=== PATIENT | male | born 1965 | race Caucasian/White ===

== ENCOUNTER 2021-07-16 18:36 | Emergency (ER) | payer BC ==
[~2021-07-16] VITALS: Ht 182.9 cm; Wt 116.1 kg
--- NOTE | 2021-07-16 18:53 | NUR ---
Dr Bonilla at the bedside for MSE.
[2021-07-16] MEDS ORDERED: KETOROLAC TROMETHAMINE 60 MG INJ IM ONE ×2 (19:09→19:15)
[2021-07-16] MEDS ORDERED: MORPHINE SULFATE 4 MG/1 ML DISP.SYRIN ONE (19:09)
[2021-07-16] MEDS ORDERED: MORPHINE SULFATE 4 MG/1 ML DISP.SYRIN IM ONE (19:15)
[2021-07-16] MEDS ORDERED: HYDR-4209 PO (20:26)
--- NOTE | 2021-07-16 20:35 | NUR ---
Patient discharged to home in stable condition. Written and verbal after care instructions given. Patient verbalizes understanding of instructions. Stressed follow up or return to ER for worsening s/s. pt's ankle wrapped in kade bandage. provided pt with crutches and provided teaching on how to use them. pt demonstrated proper usage of crutches. pt denies pain. no SOB. no chest pain. AOx4.
[2021-07-16 21:06] VITALS: BP 149/88
== END 2021-07-16 20:39 | disposition home or self-care (01) ==
LOC: ER 18:42
DX: S93.402S Sprain of unspecified ligament of left ankle, sequela (principal); M25.572 Pain in left ankle and joints of left foot; W18.40XS Slipping, tripping and stumbling without falling, unspecified, sequela
CPT/HCPCS: 73610; 96372 ×2; 99284; J1885; J2270; A4663